=== PATIENT | female | born 1930 | race Caucasian/White ===

== ENCOUNTER → 2016-06-08 | Outpatient (CLI) | payer MEDICARE ==
[~2016-06-08] MED LIST: ALDACTONE25 MG PO; AMITRIPTYLINE H50 MG PO; CIPRO500 MG PO; CLONAZEPAM0.5 MG PO; FERROUS SULFAT325 M2 PO; FLAGYL500 MG PO; FOLIC ACID 1 MG1 MG PO; K-DUR TAB 10 M10 MEQ PO; LASIX 40 MG TAB40 MG PO; LIPITOR TAB 2020 MG PO; LOSARTAN POTASS50 MG PO; METHOTREXATE T2.5 MG PO; MULTIVITAMINS1 EAC1 PO; PANTOPRAZOLE SO40 MG PO; PRADAXA150 MG PO; SERTRALINE HCL100 MG PO; TOPROL XL100 MG PO; ZANTAC300 MG PO
== END ==
LOC: HH 13:46
PROVIDERS: Internal Medicine
DX: I50.32 Chronic diastolic (congestive) heart failure (principal); J44.1 Chronic obstructive pulmonary disease with (acute) exacerbation
CPT/HCPCS: 80053; 86140

== ENCOUNTER 2016-06-13 13:16 | Emergency (ER) | payer MEDICARE ==
[2016-06-13 15:17] LABS: HEMOGLOBIN 10.1 gm/dl (12.3-15.3); RED BLOOD COUNT 3.2 M/UL (4.00-5.10); WHITE BLOOD COUNT 5.9 K/UL (4.5-11.0)
[2016-06-13 16:27] LABS: BUN/CREATININE RATIO 14 (0-10)
== END 2016-06-13 19:08 | disposition home or self-care (01) ==
LOC: ER1 13:16
PROVIDERS: Specialist/Technologist Athletic Trainer
DX: R77.8 Other specified abnormalities of plasma proteins (principal); F17.200 Nicotine dependence, unspecified, uncomplicated; Z79.82 Long term (current) use of aspirin; Z79.02 Long term (current) use of antithrombotics/antiplatelets; Z79.899 Other long term (current) drug therapy
CPT/HCPCS: 36415; 36600; 71010; 80053; 82550; 82553; 82803; 83874; 83880; 84484; 85025; 93005; 99285